=== PATIENT | male | born 1995 | race Two or more races ===

== ENCOUNTER 2024-02-20 13:09 | Inpatient (IN) | payer OTHER ==
[~2024-02-20] VITALS: Ht 180.3 cm; Wt 88.5 kg
[2024-02-20] MEDS ORDERED: 0.9 % SODIUM CHLORIDE 1,000 ML IV STA (13:35)
[2024-02-20] MEDS ORDERED: PROMETHAZINE HCL 50 MG/ML AMPUL IM ONE (13:44)
[2024-02-20] MEDS ORDERED: TAMSULOSIN HCL 0.4 MG CAP PO ONE ×2 (13:44→13:45)
[2024-02-20] MEDS ORDERED: PROMETHAZINE HCL 25 MG/ML AMPUL IM ONE (13:45)
[2024-02-20] MEDS ORDERED: MEPERIDINE HCL/PF 50 MG/ML VIAL IM ONE (13:45)
[2024-02-20 14:20] LABS: HEMATOCRIT 44.9 % (39.0-48.0); MEAN CELL VOLUME 89.7 fL (80.0-100.00); MEAN CORPUSCULAR HGB CONC 33.4 g/dl (32.0-36.0); PLATELET COUNT 186 K/uL (150-450); RED BLOOD COUNT 5.01 M/uL (4.00-6.00); RED CELL DISTRIBUTION WIDTH 13.3 % (11.5-14.5)
[2024-02-20 14:48] LABS: CALCIUM 9.5 mg/dL (8.5-10.1); CREATININE SERUM 1.17 mg/dL (0.70-1.30); GFR 74.23; POTASSIUM 3.66 mEq/L (3.5-5.1)
[2024-02-20] MEDS ORDERED: PIPERACILLIN/TAZOBACTAM SODIUM 3.375 GM VIAL IV ONE ×3 (15:30→22:57)
[2024-02-20] MEDS ORDERED: 0.9 % SODIUM CHLORIDE 1,000 ML IV ONE (18:15)
[2024-02-20] MEDS ORDERED: FAMOTIDINE/PF 20 MG in 0.9 % SODIUM CHLORIDE 8 ML IV PUSH SCH (18:19)
[2024-02-20] MEDS ORDERED: FAMOTIDINE/PF 20 MG/2 ML VIAL ONE (18:28)
[2024-02-20] MEDS ORDERED: ACETAMINOPHEN 500 MG GEL..CAP PO PRN (18:30)
[2024-02-20] MEDS ORDERED: MORPHINE SULFATE 4 MG/ML VIAL IV PRN (18:30)
[2024-02-20] MEDS ORDERED: RINGERS SOLUTION,LACTATED 1,000 ML IV SCH (18:30)
[2024-02-20] MEDS ORDERED: ACETAMINOPHEN 500 MG GEL..CAP PO ONE (19:14)
[2024-02-20 19:37] VITALS: BP 94/60; O2SAT 95
[2024-02-20 19:43] LABS: INR 1.15; PARTIAL THROMBOPLASTIN TIME 27.2 SECONDS (22.0-34.0); PROTHROMBIN TIME 12.4 SECONDS (9.0-11.5)
[2024-02-20] MEDS ORDERED: MORPHINE SULFATE 4 MG/ML CARTRIDGE IV PRN (20:00)
[2024-02-20 21:55] LABS: PH,URINE 7.5 (5.0-8.0); URINE APPEARANCE Clear; URINE BILIRRUBIN Small (NEGATIVE); URINE BLOOD Negative; URINE COLOR Dark Yellow; URINE GLUCOSE Negative (NEGATIVE); URINE KETONE Trace (NEGATIVE); URINE LEUKOCYTE Negative; URINE NITRATE Negative; URINE PROTEIN 30 (NEGATIVE)
[2024-02-20 21:58] LABS: URINE BACTERIA 26.4 uL (0.0-1933); URINE EPITHELIAL CELLS 6.6 uL (0.0-38.8); URINE WBC 11.8 uL (0.0-23.2)
[2024-02-20 22:17] LABS: URINE CAST 0.76 uL (0.0-1.40)
[2024-02-20] MEDS ORDERED: 0.9 % SODIUM CHLORIDE 1,000 ML IV SCH (23:00)
[2024-02-21] MEDS ORDERED: PIPERACILLIN/TAZOBACTAM SODIUM 3.375 GM in 0.9 % SODIUM CHLORIDE 100 ML IV SCH
[2024-02-21 00:46] VITALS: BP 109/51; O2SAT 100
[2024-02-21] MEDS ORDERED: PIPERACILLIN/TAZOBACTAM SODIUM 3.375 GM VIAL IV ONE ×2 (07:02→16:03)
[2024-02-21 08:00] VITALS: BP 99/56; O2SAT 95
[2024-02-21] MEDS ORDERED: MORPHINE SULFATE 4 MG/ML VIAL IV ONE ×2 (15:15→17:50)
[2024-02-21] MEDS ORDERED: RINGERS SOLUTION,LACTATED 1,000 ML IV SCH (17:00)
[2024-02-21 18:49] VITALS: BP 144/85; O2SAT 98
[2024-02-22] VITALS: BP 135/83; O2SAT 95
[2024-02-22 04:00] VITALS: BP 123/84; O2SAT 96
[2024-02-22 08:00] VITALS: BP 139/78; O2SAT 98
[2024-02-22] MEDS ORDERED: PIPERACILLIN/TAZOBACTAM SODIUM 3.375 GM in DEXTROSE 5 % IN WATER 100 ML IV SCH (14:00)
[2024-02-22 16:00] VITALS: BP 132/77; O2SAT 95
[2024-02-22] MEDS ORDERED: ENOXAPARIN SODIUM 40 MG/0.4 ML SYRINGE SUBCUTANEO SCH (17:00)
[2024-02-22] MEDS ORDERED: FAMOTIDINE/PF 20 MG/2 ML VIAL IV SCH (17:00)
[2024-02-22] MEDS ORDERED: ONDANSETRON HCL 2 MG/ML VIAL IV PRN (17:00)
[2024-02-22 17:18] LABS: ABG PH 7.439 (7.35-7.45); ABG PO2 79.3 mmHg (80-100); ABG pCO2 36.8 mmHg (35-45); BASE EXCESS 0.6 mmol/l; BICARBONATE 24.4 mmol/l (23-25); SaO2 96.1 %; Tco2 25.5 mmol/l
[2024-02-22 17:19] LABS: allen test SATISFACTORY; o2 21 %; puncture site RADIAL RIGHT
[2024-02-22 17:56] LABS: HEMATOCRIT 43.2 % (39.0-48.0); HEMOGLOBIN 14.7 g/dL (13-16.00); MEAN CELL VOLUME 88.4 fL (80.0-100.00); MEAN CORPUSCULAR HEMOGLOBIN 30.1 pg (27.00-32.0); MEAN CORPUSCULAR HGB CONC 34.1 g/dl (32.0-36.0); PLATELET COUNT 157 K/uL (150-450); RED BLOOD COUNT 4.89 M/uL (4.00-6.00); RED CELL DISTRIBUTION WIDTH 13.5 % (11.5-14.5)
[2024-02-22] MEDS ORDERED: ONDANSETRON HCL 2 MG/ML VIAL IV SCH (18:00)
[2024-02-22 18:30] LABS: ALBUMIN 3.4 gm/dL (3.4-5.0); BILIRUBIN TOTAL 1.82 mg/dL (0.3-1.2); CALCIUM 9.2 mg/dL (8.5-10.1); CREATININE SERUM 0.88 mg/dL (0.70-1.30); GFR 103.11; POTASSIUM 3.6 mEq/L (3.5-5.1); TOTAL PROTEIN 7.4 gm/dL (6.4-8.2)
[2024-02-23 00:32] VITALS: BP 109/84; O2SAT 95
[2024-02-23 08:00] VITALS: BP 117/74; O2SAT 97
[2024-02-23 10:48] LABS: HEMATOCRIT 44.2 % (39.0-48.0); HEMOGLOBIN 15.3 g/dL (13-16.00); MEAN CELL VOLUME 87.4 fL (80.0-100.00); MEAN CORPUSCULAR HEMOGLOBIN 30.2 pg (27.00-32.0); MEAN CORPUSCULAR HGB CONC 34.6 g/dl (32.0-36.0); PLATELET COUNT 184 K/uL (150-450); RED BLOOD COUNT 5.06 M/uL (4.00-6.00); RED CELL DISTRIBUTION WIDTH 13.7 % (11.5-14.5)
[2024-02-23 11:12] LABS: CREATININE SERUM 1.01 mg/dL (0.70-1.30); GFR 87.96; POTASSIUM 3.71 mEq/L (3.5-5.1)
[2024-02-23] MEDS ORDERED: DEXTROSE 5 %-0.45 % SOD CHLORD 1,000 ML IV SCH (11:38)
[2024-02-23] MEDS ORDERED: PHENOL 177 ML BOTTLE MM PRN (12:00)
[2024-02-23] MEDS ORDERED: MORPHINE SULFATE 2 MG/ML CARTRIDGE IV PRN (12:30)
[2024-02-23 16:00] VITALS: BP 112/75; O2SAT 98
[2024-02-24] VITALS: BP 118/79; O2SAT 96
[2024-02-24 08:00] VITALS: BP 123/87; O2SAT 96
[2024-02-24 08:34] LABS: HEMATOCRIT 39.7 % (39.0-48.0); HEMOGLOBIN 13.7 g/dL (13-16.00); MEAN CORPUSCULAR HGB CONC 34.4 g/dl (32.0-36.0); PLATELET COUNT 231 K/uL (150-450); RED BLOOD COUNT 4.56 M/uL (4.00-6.00)
[2024-02-24 09:05] LABS: BILIRUBIN TOTAL 2.2 mg/dL (0.3-1.2); CALCIUM 8.9 mg/dL (8.5-10.1); CREATININE SERUM 0.9 mg/dL (0.70-1.30); GFR 100.48; GLOBULINA 3.7 G/DL (2.4-3.5); POTASSIUM 3.5 mEq/L (3.5-5.1); TOTAL PROTEIN 6.7 gm/dL (6.4-8.2)
[2024-02-24] MEDS ORDERED: PANTOPRAZOLE SODIUM 40 MG/VIAL VIAL IV NR (13:10)
[2024-02-24 16:34] VITALS: BP 104/67; O2SAT 98
[2024-02-25 00:18] VITALS: BP 128/66; O2SAT 95
[2024-02-25 06:53] LABS: HEMATOCRIT 37.5 % (39.0-48.0); HEMOGLOBIN 12.8 g/dL (13-16.00); MEAN CELL VOLUME 87.3 fL (80.0-100.00); MEAN CORPUSCULAR HEMOGLOBIN 29.8 pg (27.00-32.0); MEAN CORPUSCULAR HGB CONC 34.1 g/dl (32.0-36.0); PLATELET COUNT 239 K/uL (150-450); RED BLOOD COUNT 4.29 M/uL (4.00-6.00); RED CELL DISTRIBUTION WIDTH 13.7 % (11.5-14.5)
[2024-02-25 08:43] VITALS: BP 109/59; O2SAT 99
[2024-02-25] MEDS ORDERED: GABAPENTIN 100 MG CAPSULE PO SCH (09:00)
[2024-02-25] MEDS ORDERED: PANTOPRAZOLE SODIUM 40 MG/VIAL VIAL IV SCH (09:00)
[2024-02-25] MEDS ORDERED: LACTOBACILLUS ACIDOPHILUS 1 CAP CAP PO SCH (12:00)
[2024-02-25] MEDS ORDERED: ACETAMINOPHEN 500 MG GEL..CAP PO SCH (14:00)
[2024-02-26 00:33] VITALS: BP 114/69; O2SAT 100
[2024-02-26 08:57] VITALS: BP 115/58; O2SAT 99
[2024-02-26 10:36] LABS: FECAL LEUKOCYTES POSITIVE (NEGATIVE)
[2024-02-26] MEDS ORDERED: LOPERAMIDE HCL 2 MG CAPSULE PO SCH (12:00)
[2024-02-26 15:20] LABS: HEMATOCRIT 36.7 % (39.0-48.0); HEMOGLOBIN 12.5 g/dL (13-16.00); MEAN CELL VOLUME 88.7 fL (80.0-100.00); MEAN CORPUSCULAR HEMOGLOBIN 30.2 pg (27.00-32.0); PLATELET COUNT 288 K/uL (150-450); RED BLOOD COUNT 4.14 M/uL (4.00-6.00)
[2024-02-26 15:40] LABS: CALCIUM 8.8 mg/dL (8.5-10.1); CREATININE SERUM 0.63 mg/dL (0.70-1.30); GFR 151.64; POTASSIUM 3.49 mEq/L (3.5-5.1)
[2024-02-26 17:31] VITALS: BP 135/71; O2SAT 98
[2024-02-27 01:40] VITALS: BP 110/73; O2SAT 100
[2024-02-27 08:56] VITALS: BP 148/90; O2SAT 96
[2024-02-27 12:17] LABS: PH,URINE 7.5 (5.0-8.0); URINE APPEARANCE Clear; URINE BILIRRUBIN Negative (NEGATIVE); URINE BLOOD Negative; URINE COLOR Yellow; URINE GLUCOSE Negative (NEGATIVE); URINE KETONE Trace (NEGATIVE); URINE LEUKOCYTE Negative; URINE NITRATE Negative; URINE PROTEIN Negative (NEGATIVE); URINE UROBILINOGEN 0.2 E.U./dl
[2024-02-27 12:20] LABS: URINE RBC 4.8 uL (0.0-20.8)
[2024-02-27 12:27] LABS: URINE BACTERIA 1.2 uL (0.0-1933); URINE EPITHELIAL CELLS 0.4 uL (0.0-38.8); URINE WBC 0.9 uL (0.0-23.2)
== END 2024-02-27 14:55 | disposition home or self-care (01) | DRG 397 ==
LOC: ER 13:11 → SURH 18:39
PROVIDERS: Emergency Medicine; General Practice; Internal Medicine Infectious Disease; Student in an Organized Health Care Education/Training Program; ADMIT Internal Medicine; ATTEND Internal Medicine
PROC: BW21ZZZ Computerized Tomography (CT Scan) of Abdomen and Pelvis (ICD-10-PCS; 2024-02-20)
PROC: 0DTJ4ZZ Resection of Appendix, Percutaneous Endoscopic Approach (ICD-10-PCS; principal; 2024-02-21 15:00)
DX: K35.80 Unspecified acute appendicitis (principal); A41.9 Sepsis, unspecified organism; K91.89 Other postprocedural complications and disorders of digestive system; K56.7 Ileus, unspecified; E86.0 Dehydration